=== PATIENT | female | born 1965 | race Caucasian/White ===

== ENCOUNTER → 2018-04-16 12:31 | Outpatient (CLI) | payer OTHER, SELFPAY ==
--- NOTE | 2018-04-16 12:33 | DI.CT.S_ITS ---
PROCEDURE: CT SOFT TISSUE NECK W CON INDICATIONS: Left sided neck swelling TECHNIQUE: After the administration of intravenous contrast, 3.0 mm axial sections acquired from the sella to the aortic arch. Additional oblique axial 3.0 mm sections acquired through the pharynx. 3 mm thick coronal and sagittal reformats were generated. For radiation dose reduction, the following was used: automated exposure control. COMPARISON: None. FINDINGS: Image quality: Excellent. Lymph nodes: No enlarged lymph nodes seen throughout the neck. Vessels: Visualized vasculature appears patent. Neck spaces: There is a 4 x 7 mm low density nodule in the area of right tonsillar fossa. The oropharynx, nasopharynx, and pharynx demonstrate no mucosal lesions. The vocal cords, false vocal cords, pyriform sinuses, epiglottis, vallecula, and tongue base all appear normal. Extramucosal spaces appear unremarkable. Glands: There is mass in the posterior aspect of the left parotid gland measuring 1.7 x 2.1 cm. The mass has lobulated contour and heterogeneous enhancement. The submandibular glands appear normal. Thyroid gland is is normal. Miscellaneous: Visualized brain and orbits appear normal. Lung apices appear clear. Superficial soft tissues appear normal. Bones: No suspicious bony lesions. Degenerative disc disease is present. There is large bridging osteophytes from C3 through C7, likely secondary to DISH. Visualized sinuses and mastoids appear unremarkable. IMPRESSION: 1. A 1.7 x 2.1 cm left parotid mass with heterogeneous contour and enhancement. Differential diagnosis include benign (such as pleomorphic adenoma) and malignant (such as mucoepidermoid carcinoma) neoplasms. If clinically indicated, percutaneous biopsy can be performed under ultrasound guidance. Recommend ENT consultation is suggested. 2. No cervical lymphadenopathy. 3. A small 4 x 7 mm low density nodule in the area of the right tonsillar fossa. This finding could be further evaluated by direct visualization. Dictated by: Manda Gamboa M.D. on 04/17/2018 at 13:22 Approved by: Manda Gamboa M.D. on 04/17/2018 at 13:33
== END ==
PROVIDERS: Visit Provider Physician Assistant
DX: R22.1 Localized swelling, mass and lump, neck (principal); J35.8 Other chronic diseases of tonsils and adenoids
CPT/HCPCS: 70491; Q9967

== ENCOUNTER → 2020-05-11 11:54 | Outpatient (CLI) | payer OTHER, SELFPAY ==
--- NOTE | 2020-05-11 11:55 | DI.US.S_ITS ---
PROCEDURE: US SOFT TISSUE HEAD AND NECK INDICATIONS: LEFT NECK LUMP/NIGHTIME SWELLING/INCREASED SALIVATION TECHNIQUE: Real-time scanning was performed of the neck region of interest, with image documentation. COMPARISON: None. FINDINGS: 1.7 x 1.1 x 0.7 centimeter left neck lymph node is noted in region of palpable abnormality. There is a 2nd 2.4 x 1.4 x 0.6 centimeter lymph node in the left neck in the region of the palpable abnormality. Submandibular glands are normal in appearance. No soft tissue edema or soft tissue fluid collections. IMPRESSION: Prominent left neck lymph nodes. Decision to biopsy should be based on clinical assessment. Dictated by: Lia Boateng MD, PhD on 05/11/2020 at 12:26 Approved by: Lia Boateng MD, PhD on 05/11/2020 at 12:28
== END ==
PROVIDERS: Referring Provider Student in an Organized Health Care Education/Training Program; Visit Provider Student in an Organized Health Care Education/Training Program
DX: R59.0 Localized enlarged lymph nodes (principal)
CPT/HCPCS: 76536

== ENCOUNTER → 2020-08-03 09:10 | Outpatient (CLI) | payer OTHER, SELFPAY ==
--- NOTE | 2020-08-03 | DI.CT.S_ITS ---
PROCEDURE: CT SOFT TISSUE NECK W CON INDICATIONS: Localized swelling, mass and lump, neck TECHNIQUE: After the administration of intravenous contrast, 3.0 mm axial sections acquired from the skull base to the upper chest. Additional 1.5 mm axial sections acquired through the true vocal cords. 1 mm thick coronal reformats were generated. For radiation dose reduction, the following was used: automated exposure control. COMPARISON: [facility], CT, CT SOFT TISSUE NECK W CON, 04/16/2018, 13:02. FINDINGS: Image quality: Excellent. Neck spaces: The oropharynx, nasopharynx, and pharynx demonstrate no mucosal lesions. The pyriform sinuses, epiglottis, vallecular, and tongue base all appear normal. Extramucosal spaces of the neck are unremarkable. True and false vocal cords are unremarkable. Lymph nodes: No enlarged lymph nodes seen throughout the neck. Vessels: Visualized vasculature appears patent. Glands: The parotid and submandibular glands appear normal. Previous left parotid mass is been removed. Thyroid gland is unremarkable Miscellaneous: Visualized brain and orbits appear unremarkable. Lung apices appear clear. Superficial soft tissues appear normal. Superficial vessel is noted along the left aspect of the sternocleidomastoid muscle in the subcutaneous fat, corresponding to area of palpable concern. This is unchanged compared to prior exam. Bones: No suspicious bony lesions. Visualized sinuses and mastoids appear unremarkable. IMPRESSION: 1. Superficial vessel identified in the location of palpable concern. Otherwise, no mass lesion is identified. Dictated by: Elaine Slade M.D. on 08/03/2020 at 15:28 Approved by: Elaine Slade M.D. on 08/03/2020 at 15:30
== END ==
PROVIDERS: PCP Registered Nurse Diabetes Educator; Referring Provider Otolaryngology; Visit Provider Otolaryngology
DX: R22.1 Localized swelling, mass and lump, neck (principal)
CPT/HCPCS: 70491; Q9967

== ENCOUNTER → 2020-09-24 09:11 | Outpatient (CLI) | payer OTHER, SELFPAY ==
[2020-09-24 09:24] LABS: Hemoglobin 13.7 g/dL (12.0-16.0); Mean Corpuscular HGB Conc 32.6 % (30-36); Mean Corpuscular Hemoglobin 26.5 PG (26-34); Mean Corpuscular Volume 81.3 fL (80-100); Platelet Count 229 X10^3/uL (150-400); Red Blood Cell Count 5.16 X10^6/uL (4.0-5.2); Red Cell Distribution Width 15.3 % (11.6-14.8); White Blood Cell Count 6.2 X10^3/uL (4.5-11.0)
[2020-09-24 09:42] LABS: Alanine Aminotransferase 22 IU/L (<35); Albumin 4.2 g/dL (3.5-5.0); Albumin Globulin Ratio 1.4 (1.0-2.8); Alkaline Phosphatase 80 U/L (38-126); Aspartate Aminotransferase 18 IU/L (14-36); Bilirubin Total 0.6 mg/dL (0.2-1.3); Blood Urea Nitrogen 13 mg/dL (7-17); Calcium 9.1 mg/dL (8.4-10.2); Carbon Dioxide 30 mmol/L (22-32); Chloride 104 mmol/L (98-107); Cholesterol 146 mg/dL (140-199); Estimated Glomerular Filt Rate > 60.0 mL/min (>60); Glucose 96 mg/dL (70-100); HDL Cholesterol 57 mg/dL (40-60); HEMOLYSIS < 15 (0-50); LDL Cholesterol Calculated 78 mg/dL (<100); Potassium 3.7 mmol/L (3.4-5.1); Sodium 139 mmol/L (137-145); Total Protein 7.2 g/dL (6.3-8.2); Triglycerides 56 mg/dL (35-150)
[2020-09-24 10:24] LABS: TSH w/ Reflex to FT4 0.82 uIU/mL (0.47-4.68)
== END ==
PROVIDERS: PCP Registered Nurse Diabetes Educator; Referring Provider Registered Nurse Diabetes Educator; Visit Provider Registered Nurse Diabetes Educator
DX: Z00.00 Encounter for general adult medical examination without abnormal findings (principal)
CPT/HCPCS: 36415; 80053; 80061; 84443; 85027

== ENCOUNTER → 2020-10-22 09:02 | Outpatient (CLI) | payer OTHER, SELFPAY ==
--- NOTE | 2020-10-22 09:02 | DI.MG.S_ITS ---
BILATERAL DIGITAL SCREENING MAMMOGRAM 3D/2D WITH CAD: 10/22/2020 CLINICAL: Routine screening. Family history of breast cancer. Comparison is made to exam dated: 11/30/2015 mammogram - [facility]. There are scattered fibroglandular elements in both breasts. Current study was also evaluated with a Computer Aided Detection (CAD) system. No significant masses, calcifications, or other findings are seen in either breast. There has been no significant interval change. IMPRESSION: NEGATIVE There is no mammographic evidence of malignancy. A 1 year screening mammogram is recommended. This exam was interpreted at Station ID: [id number]. NOTE: For mammograms, a report in lay terms will be sent to the patient. Approximately 15% of breast malignancies will not be visualized mammographically. In the management of a palpable breast mass, a negative mammogram must not discourage biopsy of a clinically suspicious lesion. Electronically Signed By: Jason causey/marisol:10/22/2020 10:46:48 letter sent: Normal Exam ACR BI-RADS Category 1: Negative [id number]
== END ==
PROVIDERS: PCP Registered Nurse Diabetes Educator; Referring Provider Registered Nurse Diabetes Educator; Visit Provider Registered Nurse Diabetes Educator
DX: Z12.31 Encounter for screening mammogram for malignant neoplasm of breast (principal); Z80.3 Family history of malignant neoplasm of breast
CPT/HCPCS: 77063; 77067

== ENCOUNTER → 2022-01-18 07:32 | Outpatient (CLI) | payer OTHER, SELFPAY ==
[2022-01-18 09:14] LABS: Alanine Aminotransferase 20 IU/L (<35); Albumin 4.4 g/dL (3.5-5.0); Albumin Globulin Ratio 1.9 (1.0-2.8); Alkaline Phosphatase 88 U/L (38-126); Aspartate Aminotransferase 19 IU/L (14-36); Bilirubin Total 0.4 mg/dL (0.2-1.3); Bilirubin Unconjugated 0.4 mg/dL (0.0-1.1); Globulin 2.3 g/dL (1.7-4.1); HEMOLYSIS < 15 (0-50); Total Protein 6.7 g/dL (6.3-8.2)
== END ==
PROVIDERS: PCP Registered Nurse Diabetes Educator; Referring Provider Registered Nurse Diabetes Educator; Visit Provider Registered Nurse Diabetes Educator
DX: B35.3 Tinea pedis (principal)
CPT/HCPCS: 36415; 80076

== ENCOUNTER → 2022-11-21 14:50 | Outpatient (CLI) | payer OTHER, SELFPAY ==
--- NOTE | 2022-11-21 | DI.MG.S_ITS ---
BILATERAL DIGITAL SCREENING MAMMOGRAM 3D/2D WITH CAD: 11/21/2022 CLINICAL: Routine screening. Family history of breast cancer. Comparison is made to exams dated: 10/22/2020 mammogram - [facility], 11/30/2015 mammogram - [facility], and 08/16/2011 mammogram - [facility]. Both breasts are almost entirely fatty (category a/<25% glandular tissue). Current study was also evaluated with a Computer Aided Detection (CAD) system. No significant masses, calcifications, or other findings are seen in either breast. There has been no significant interval change. IMPRESSION: NEGATIVE There is no mammographic evidence of malignancy. A 1 year screening mammogram is recommended. Based on the Tyrer Cuzick model (a risk assessment model) the patient's lifetime risk is 7.5% and her 10 year risk is 2.9%. According to the ACR, ACS, and NCCN guidelines, an annual breast MRI exam along with mammogram is recommended if the patient's lifetime risk is 20% or greater. This exam was interpreted at Station ID: [id number]. NOTE: For mammograms, a report in lay terms will be sent to the patient. Approximately 15% of breast malignancies will not be visualized mammographically. In the management of a palpable breast mass, a negative mammogram must not discourage biopsy of a clinically suspicious lesion. Electronically Signed By: Madonna batista/marisol:11/22/2022 09:00:55 letter sent: Normal Exam ACR BI-RADS Category 1: Negative [id number]
[2022-11-22 13:43] LABS: Fecal Immunochemical Test Negative (Negative)
== END ==
PROVIDERS: PCP Registered Nurse Diabetes Educator; Referring Provider Registered Nurse Diabetes Educator; Visit Provider Registered Nurse Diabetes Educator
DX: Z12.11 Encounter for screening for malignant neoplasm of colon (principal); Z12.31 Encounter for screening mammogram for malignant neoplasm of breast; Z80.3 Family history of malignant neoplasm of breast
CPT/HCPCS: 77063; 77067; 82274

== ENCOUNTER → 2024-11-18 11:16 | Outpatient (CLI) | payer OTHER, SELFPAY ==
--- NOTE | 2024-11-18 11:18 | DI.MG.S_ITS ---
BILATERAL DIGITAL SCREENING MAMMOGRAM 3D/2D WITH CAD: 11/18/2024 CLINICAL: Routine screening. Family history of breast cancer. Comparison is made to exams dated: 11/21/2022 mammogram, 10/22/2020 mammogram - [facility], and 11/30/2015 mammogram - [facility]. The breasts are almost entirely fatty (category a/<25% glandular tissue). Current study was also evaluated with a Computer Aided Detection (CAD) system. No significant masses, calcifications, or other findings are seen in either breast. There has been no significant interval change. IMPRESSION: NEGATIVE There is no mammographic evidence of malignancy. A 1 year screening mammogram is recommended. Based on the Tyrer Cuzick model (a risk assessment model) the patient's lifetime risk is 7.1% and her 10 year risk is 3.0%. According to the ACR, ACS, and NCCN guidelines, an annual breast MRI exam along with mammogram is recommended if the patient's lifetime risk is 20% or greater. This exam was interpreted at Station ID: [id number]. NOTE: For mammograms, a report in lay terms will be sent to the patient. Approximately 15% of breast malignancies will not be visualized mammographically. In the management of a palpable breast mass, a negative mammogram must not discourage biopsy of a clinically suspicious lesion. Electronically Signed By: Rick delacruz/marisol:11/18/2024 16:35:20 copy to: MARIANO STOCKTON letter sent: Normal Exam ACR BI-RADS Category 1: Negative
== END ==
PROVIDERS: PCP Registered Nurse Diabetes Educator; Referring Provider Registered Nurse Diabetes Educator; Visit Provider Registered Nurse Diabetes Educator
DX: Z12.31 Encounter for screening mammogram for malignant neoplasm of breast (principal); Z80.3 Family history of malignant neoplasm of breast; R92.313 Mammographic fatty tissue density, bilateral breasts
CPT/HCPCS: 77063; 77067